=== PATIENT | male | born 1960 | race Caucasian/White ===

== ENCOUNTER 2018-04-08 11:12 | Observation (INO) ==
[2018-04-08] MEDS ORDERED: Morphine Inj 4 MG/ML Vial IV.PUSH PRN (21:06)
[2018-04-08] MEDS ORDERED: Famotidine 20 MG Tablet PO SCH (21:15)
[2018-04-08] MEDS ORDERED: Zolpidem Tartrate 5 MG Tablet PO PRN (21:17)
[2018-04-08 22:25] LABS: Troponin I 0.03 ng/mL (0.02-0.05)
--- NOTE | 2018-04-08 23:27 | P.HPIM ---
[facility] of Present Illness [facility]: No Primary Care Physician Chief Complaint: Chest pain History of Present Illness: Mr. He is a 57 y/o male who recently relocated here from [place], [place] with a history of atrial fibrillation status post ablation, hypertension , hyperlipidemia, implanted loop recorder, questionable history of CAD (denies cardiac stents or CABG), and pneumonia who presented to the ED in [place] for evaluation of chest pain. It was his third visit to the ER: 1st time he left without being seen, second time he left AMA, and this time he was transferred to [facility] for evaluation of his chest pain due to new EKG changes compared to earlier EKG. According to the patient's nurse, he requested that he be placed on a Fentanyl drip as soon as he arrived from the prior hospital. The patient is seen in the CDU. He is very sleepy and according to the nurse, his daughter dropped of his suitcases and medications and informed the staff she was moving to another state. The patient and the patient's daughter's boyfriend had some sort of verbal confrontation in his room and after they left, the patient began to express suicidal ideation with intent. The patient then took unknown medications from his home meds before the nurse could lock them up for safety. He has a prescription for Xanax 1 mg twice daily that was filled 4 days ago and there only about 8 pills left. At the time of my visit, he is very sleepy but will awaken to voice. After I woke the patient up, he asked for a drink of apple juice. He reports severe central chest pain on direct inquiry about chest pain but falls back asleep while talking to me. When I attempted to get more in depth about the symptoms he has been having and his suicidal ideations, he continued to fall asleep. He intermittently asks for something to drink and expresses disdain at his n.p.o. status. Case was discussed with Dr. Tolbert. She has personally seen the patient and initiated a Heaton Act due to suicidal statements. I have ordered a sitter and psychiatric evaluation. Most of the patient's history is obtained from the medical record as the patient is not cooperative with history and physical. - Diagnosis (1) Chest pain Review of Systems unobtainable due to mental status (patient is uncooperative) PMFSH - History History Provided By: Patient, Medical Record - Medical History Medical History: Medical History (Last Updated 04/09/18 @ 04:28 by ROYA Hendrickson) Cholecystectomy planned (Acute) Pneumonia (Acute) Atrial fibrillation (Acute) History of hyperlipidemia History of hypertension - Surgical History Surgical History: Surgical History (Last Updated 04/09/18 @ 04:28 by ROYA Hendrickson) History of loop recorder (Acute) History of appendectomy (Acute) Hx of cardiac cath (Acute) S/P ablation of atrial fibrillation (Acute) - Family History Family History: Family History (Last Updated 04/09/18 @ 04:27 by ROYA Hendrickson) Other Family history unobtainable - Tobacco History Second Hand Smoke Exposure: Yes Smoking Status: Heavy tobacco smoker Tobacco Type: Cigarettes - Alcohol History How Often Do You Have a Drink Containing Alcohol: Never - Substance Use History Substance History: No History of Abuse Medications and Allergies Active Medications: Active Medications Acetaminophen (Tylenol) 500 mg PO Q4H PRN PRN Reason: HEADACHE Hydrocodone Bitart/Acetaminophen ([place]ur 7.5/325) 1 tab PO Q4H PRN PRN Reason: PAIN SCALE 1 TO 5 Famotidine (Pepcid) 20 mg PO BID JOSH Morphine Sulfate (Morphine Inj) 2 mg IV.PUSH Q3H PRN PRN Reason: PAIN SCALE 6 TO 10 Nitroglycerin (Nitrostat Sl) 0.4 mg SL Q5M PRN PRN Reason: ANGINA Sodium Chloride (Ns Flush) 2 ml IV.FLUSH BID JOSH Sodium Chloride (Ns Flush) 2 ml IV.FLUSH PRN PRN PRN Reason: FLUSH AFTER USING IV ACCESS Zolpidem Tartrate (Ambien) 5 mg PO HS PRN PRN Reason: INSOMNIA Allergies Allergy/AdvReac Type Severity Reaction Status Date / Time ceftriaxone [From Rocephin] Allergy Rash Verified 04/08/18 11:19 lisinopril Allergy Cough Verified 04/08/18 11:19 Home Medications Medication Instructions Recorded Confirmed Type amiodarone 04/07/18 History gabapentin 04/07/18 History ibuprofen 04/07/18 History lovastatin 04/07/18 History metoprolol tartrate 04/07/18 History sertraline 04/07/18 History alprazolam 1 mg PO BID 04/09/18 04/09/18 History famotidine 20 mg PO BID 04/09/18 04/09/18 History fluticasone 1 spray INTRANASAL DAILY 04/09/18 04/09/18 History isosorbide mononitrate 30 mg PO DAILY 04/09/18 04/09/18 History losartan 100 mg PO DAILY 04/09/18 04/09/18 History pantoprazole 40 mg PO DAILY 04/09/18 04/09/18 History trazodone 300 mg PO DAILY PRN 04/09/18 04/09/18 History Exam Vital signs: Vital Signs 04/08/18 21:46 Temperature 98 F Pulse Rate 57 L Respiratory Rate 18 Blood Pressure 140/78 Pulse Oximetry 97 - Constitutional no acute distress, obese, disheveled, somnolent - Routine Respiratory Exam Present: CTA bilaterally, diminished air movement (at bases) - Routine Cardiovascular Exam Present: RRR, S1, S2. Absent: murmur, gallop, rubs - Routine Abdominal Exam Present: soft, normoactive bowel sounds. Absent: distended - Routine Extremities Exam Present: pulses intact. Absent: edema - Routine Skin Exam Present: dry, warm - Routine Neurological Exam Present: altered mental status (somnolent and noncooperative). Absent: facial asymmetry Results - Labs Labs: Cardiac Enzymes 04/08/18 Range/Units 21:45 Total Creatine Kinase 97 (39-308) U/L Troponin I 0.03 (0.02-0.05) ng/mL Caprini VTE Risk Assessment Caprini VTE Risk Assessment: Moderate/High Risk (score >= 2) Caprini Risk Assessment Model: Point Value = 1 Point Value = 2 Point Value = 3 Point Value = 5 Age 41-60 Minor surgery BMI > 25 kg/m2 Swollen legs Varicose veins or History of unexplained or recurrent spontaneous Oral contraceptives or hormone replacement Sepsis (< 1 month) Serious lung disease, including pneumonia (< 1 month) Abnormal pulmonary function Acute myocardial infarction Congestive heart failure (< 1 month) History of inflammatory bowel disease Medical patient at bed rest Age 61-74 Arthroscopic surgery Major open surgery (> 45 min) Laparoscopic surgery (> 45 min) Malignancy Confined to bed (> 72 hours) Immobilizing plaster cast Central venous access Age >= 75 History of VTE Family history of VTE Factor V Leiden Prothrombin [id number] Lupus anticoagulant Anticardiolipin antibodies Elevated serum homocysteine Heparin-induced thrombocytopenia Other congenital or acquired thrombophilia Stroke (< 1 month) Elective arthroplasty Hip, pelvis, or leg fracture Acute spinal cord injury (< 1 month) Prophylaxis Regimen: Total Risk Factor Score Risk Level Prophylaxis Regimen 0-1 Low Early ambulation 2 Moderate Order ONE of the following: *Sequential Compression Device (SCD) *Heparin 5000 units SQ BID 3-4 Higher Order ONE of the following medications: *Heparin 5000 units SQ TID *Enoxaparin/Lovenox 40 mg SQ daily (WT < 150 kg, CrCl > 30 mL/min) *Enoxaparin/Lovenox 30 mg SQ daily (WT < 150 kg, CrCl > 10-29 mL/min) *Enoxaparin/Lovenox 30 mg SQ BID (WT < 150 kg, CrCl > 30 mL/min) AND/OR *Sequential Compression Device (SCD) 5 or more Highest Order ONE of the following medications: *Heparin 5000 units SQ TID (Preferred with Epidurals) *Enoxaparin/Lovenox 40 mg SQ daily (WT < 150 kg, CrCl > 30 mL/min) *Enoxaparin/Lovenox 30 mg SQ daily (WT < 150 kg, CrCl > 10-29 mL/min) *Enoxaparin/Lovenox 30 mg SQ BID (WT < 150 kg, CrCl > 30 mL/min) AND *Sequential Compression Device (SCD) Assessment and Plan - Assessment (1) Chest pain Code(s): R07.9 - Chest pain, unspecified Status: Acute - Plan Mr. He is a 57 y/o male who recently relocated here from [place], [place] with a history of atrial fibrillation status post ablation, hypertension , hyperlipidemia, implanted loop recorder, questionable history of CAD (denies cardiac stents or CABG), and pneumonia who presented to the ED in [place] for evaluation of chest pain. It was his third visit to the ER: 1st time he left without being seen, second time he left AMA, and this time he was transferred to [facility] main campus for evaluation of his chest pain due to new EKG changes compared to earlier EKG. Chest pain - Serial EKGs and cardiac enzymes to r/o ACS -personally reviewed and cardiac enzymes have been within normal parameters (total of 4 including earlier ER visit); twelve-lead EKG shows new inferior lead T-wave inversion and t wave inversion in V3 - V6 now vs t wave suppression in V4 - 6 noted on earlier EKG - Continuous cardiac telemetry to monitor for cardiac arrhythmia - Nitroglycerin 0.4 mg sublingual as needed for chest pain; PRN Macarthur and morphine for further complaints of pain - consult cardiology given EKG changes - Toxicology screen positive for Benzodiazepines - Continue n.p.o. status - We will check lipid profile - Famotidine 20 mg p.o. twice daily Suicidal Ideation - Heaton Act initiated by Dr. Tolbert - Sitter at bedside - Consult placed to psychiatry service -assistance/recommendations appreciated Abnormal CTPA - No pulmonary embolism limited by incompletely opacified sub-segmental branches for definitive evaluation - 2 cm parenchymal cyst with adjacent small nodules inferiorly with the largest measuring up to 6 mm -infectious versus inflammatory etiology. Radiologist recommends follow-up CT examination in 2-3 months given the somewhat atypical appearance of the cyst and adjacent nodules - ordered therapeutic Lovenox dose pending cardiology evaluation - concern to not order another contrast study with the possibility of cardiac cath given EKG changes. - awaiting home medications to be reconciled DVT prophylaxis - ordered a therapeutic Lovenox dose pending cardiology evaluation Discussed Condition With: Dr. Tolbert, CDU nurse
[2018-04-09] MEDS ORDERED: Enoxaparin Inj 100 MG/ML Syringe SQ ONE (05:00)
--- NOTE | 2018-04-09 05:50 | P.PN ---
Subjective Interval history: f/u cp and SI. Denies cp and SI. Requesting neurontin, xanax and Eliquis 5 mg BID which are his home meds Physical Exam Vital signs: Vital Signs 04/08/18 21:46 04/09/18 00:00 04/09/18 03:27 Temperature 98 F 98.3 F Pulse Rate 57 L 64 52 L Respiratory Rate 18 24 18 Blood Pressure 140/78 123/73 127/81 Pulse Oximetry 97 93 L Intake & Output 04/08/18 04/08/18 04/09/18 06:59 18:59 06:59 Weight 92.986 kg Other: Weight On Admission 0 g Narrative: GENERAL: Well-developed and well-nourished in no distress SKIN: Warm and dry. HEAD: Atraumatic. Normocephalic. EYES: Pupils equal and round. No scleral icterus. No injection or drainage. ENT: No nasal bleeding or discharge. Mucous membranes pink and moist. NECK: Trachea midline. No JVD. CARDIOVASCULAR: Regular rate and rhythm. RESPIRATORY: No accessory muscle use. Clear to auscultation. Breath sounds equal bilaterally. GASTROINTESTINAL: Abdomen soft, non-tender, nondistended. MUSCULOSKELETAL: Extremities without clubbing, cyanosis, or edema. No obvious deformities. NEUROLOGICAL: Awake and alert. No obvious cranial nerve deficits. Motor grossly within normal limits. Five out of 5 muscle strength in the arms and legs. Normal speech. PSYCHIATRIC: Appropriate mood and affect; insight and judgment normal. Results - Labs Laboratory Results - last 24 hr 04/08/18 21:45 Magnesium 2.0 Total Creatine Kinase 97 Troponin I 0.03 - Procedures none Assessment and Plan - Plan Mr. He is a 57 y/o male who recently relocated here from [place], [place] with a history of atrial fibrillation status post ablation, hypertension , hyperlipidemia, implanted loop recorder, questionable history of CAD (denies cardiac stents or CABG), and pneumonia who presented to the ED in [place] for evaluation of chest pain. It was his third visit to the ER: 1st time he left without being seen, second time he left AMA, and this time he was transferred to [facility] main campus for evaluation of his chest pain due to new EKG changes compared to earlier EKG. Chest pain - Serial EKGs and cardiac enzymes to r/o ACS -personally reviewed and cardiac enzymes have been within normal parameters (total of 4 including earlier ER visit); twelve-lead EKG shows new inferior lead T-wave inversion and t wave inversion in V3 - V6 - Continuous cardiac telemetry to monitor for cardiac arrhythmia - Nitroglycerin 0.4 mg sublingual as needed for chest pain; PRN Lyons and morphine for further complaints of pain - consult cardiology given EKG changes, ct asa, nitrate, BB and lovenox - Toxicology screen positive for Benzodiazepines - Continue n.p.o. status - We will check lipid profile Suicidal Ideation - Heaton Act initiated by Dr. Tolbert - Sitter at bedside - Consult placed to psychiatry service -assistance/recommendations appreciated Abnormal CTPA - No pulmonary embolism limited by incompletely opacified sub-segmental branches for definitive evaluation - 2 cm parenchymal cyst with adjacent small nodules inferiorly with the largest measuring up to 6 mm -infectious versus inflammatory etiology. Radiologist recommends follow-up CT examination in 2-3 months given the somewhat atypical appearance of the cyst and adjacent nodules - received therapeutic Lovenox dose pending cardiology evaluation - concern to not order another contrast study with the possibility of cardiac cath given EKG changes. - awaiting home medications to be reconciled DVT prophylaxis - Switch to Heparin drip pending card lonnie
[2018-04-09 07:58] LABS: Chol/HDL Ratio 5.4 Ratio; HDL Cholesterol 33.1 mg/dL (40.0-60.0); Troponin I 0.03 ng/mL (0.02-0.05)
[2018-04-09] MEDS ORDERED: Aspirin 325 MG Tablet PO SCH (09:00)
[2018-04-09] MEDS: Sertraline 100 MG Tablet PO SCH (10:22)
[2018-04-09] MEDS: Isosorbide Mononitrate 30 MG ER 24HR Tablet (Imdur) PO SCH (10:22)
[2018-04-09] MEDS: Amiodarone 200 MG Tablet PO SCH (10:23)
[2018-04-09] MEDS: Metoprolol Tartrate 50 MG Tablet PO SCH ×2 (10:24→20:29)
--- NOTE | 2018-04-09 11:19 | MB ---
cc: Flo Gonzales MD DATE: 04/09/2018 REASON FOR CONSULTATION: Chest pain, abnormal EKG. HISTORY OF PRESENT ILLNESS: The patient is a poor historian. He is a 57-year-old white male, originally from [place], [place], where he has had most of his cardiac care, with a history of cardiac ablation possibly of atrial fibrillation, hypertension, and hyperlipidemia, who presented to the hospital, mainly with complaints of chest pain. The patient states for the past two years, he has had daily left-sided chest pain associated with pounding palpitations and shortness of breath occasionally diaphoresis. The chest discomforts generally last up to 10-15 minutes and have absolutely no relationship to exertion. He denies pleurisy, fevers, or paroxysmal nocturnal dyspnea. Chronically, he has intermittent mild dependent edema. He states he has lost consciousness in the past, but is unable to recall when his last episode of syncope was. The patient reports a history of 2 "heart caths" but cannot recall ever receiving a coronary stent. He has had an implantable loop recorder placed some time in the last few years. PAST MEDICAL HISTORY: As above. No other details currently available. PAST SURGICAL HISTORY: 1. Appendectomy. 2. Cholecystectomy. 3. Loop recorder placement. CARDIAC MEDICATIONS AT HOME: 1. Amiodarone 200 mg daily. 2. Metoprolol tartrate 50 mg b.i.d. 3. Isosorbide mononitrate 30 mg daily. 4. Losartan 100 mg daily. 5. Lovastatin, unknown dose. ALLERGIES: 1. CEFTRIAXONE 2. LISINOPRIL. FAMILY HISTORY: The patient reports both his parents passing away from myocardial infarction in their 50s. SOCIAL HISTORY: The patient smokes about 3/4 of a pack of cigarettes per day. He denies drug or alcohol abuse. REVIEW OF SYSTEMS: As in history of present illness, otherwise negative or noncontributory. He does complain of occasional chronic mild headaches. He denies dyspepsia, bright red blood per rectum or melena. PHYSICAL EXAMINATION: VITAL SIGNS: His blood pressure is 124/69 with a pulse of 56, respirations 20. GENERAL: He is a well-developed, well-nourished white male, in no acute distress. NECK: Jugular venous pressure is normal. Carotid pulses are 2+ bilaterally and without bruits. CHEST: Reveals clear lungs [place]. CARDIAC: He has a regular rhythm and rate without S3, S4, or murmur. ABDOMEN: He has a soft, nontender abdomen. Bowel sounds are present. There is no definite hepatosplenomegaly. EXTREMITIES: Reveals no clubbing, cyanosis or edema. DIAGNOSTIC STUDIES: EKG shows sinus rhythm. Inferior and anterolateral ST and T-wave abnormality, consider ischemia. IMAGING STUDIES: Chest x-ray shows no acute disease. LABORATORY DATA: Includes LDL 126, HDL 33, total cholesterol 179, triglycerides 101. Negative cardiac enzymes. WBC 8.1, hemoglobin 13.5, platelets 254. IMPRESSION: Overall atypical chronic chest pains in this 57-year-old white male with a history of hypertension, hyperlipidemia, and history of ablation, possibly of atrial fibrillation. Cardiac enzymes are negative for myocardial infarction. His EKG does show ischemic inferior and anterolateral ST and T-wave changes, the chronicity of which is not clear. The patient overall is a poor historian. From what I can gather, he may have had a nuclear stress test 2 months ago in [place], [place] that was negative for ischemia, but this is obviously difficult to confirm. RECOMMENDATIONS: Check a Lexiscan nuclear stress test; we will followup as needed for any ischemia demonstrated on nuclear stress testing. MD FANI Rodriguez/REBECCA , 10:55 AM , 11:04 AM CELSO
--- NOTE | 2018-04-09 12:00 | P.CONPSY ---
Provisional Diagnosis Admission Date: April 08, 2018 21:17 Masterson I.: Adjustment disorder with disturbance of conduct and emotions History of Present Illness Service: [facility] Primary Care Provider: No Primary Care Physician Chief Complaint: Chest pain History of Present Illness: The patient is a 57-year-old [place] man, domiciled in [facility] with daughter, he recently relocated from [place] to [facility], , unemployed, with psychiatric history of anxiety, he is on Zoloft 100 mg, Xanax 1 mg 3 times daily , no previous psychiatric hospitalizations, no suicide attempts, with a history medical history of atrial fibrillation status post ablation, hypertension, hyperlipidemia, implanted loop recorder, questionable history of CAD (denies cardiac stents or CABG), and pneumonia who presented to the ED in [place] for evaluation of chest pain. It was his third visit to the ER: 1st time he left without being seen, second time he left AMA, and this time he was transferred to [facility] [place] for evaluation of his chest pain due to new EKG changes compared to earlier EKG.According to the patient's nurse, he requested that he be placed on a Fentanyl drip as soon as he arrived from the prior hospital. The patient is seen in the CDU. He is very sleepy and according to the nurse, his daughter dropped of his suitcases and medications and informed the staff she was moving to another state. The patient and the patient's daughter's boyfriend had some sort of verbal confrontation in his room and after they left , the patient began to express suicidal ideation with intent. The patient then took unknown medications from his home meds before the nurse could lock them up for safety. He has a prescription for Xanax 1 mg twice daily that was filled 4 days ago and there only about 8 pills left. At the time of my visit, he is very sleepy but will awaken to voice. After I woke the patient up, he asked for a drink of apple juice. He reports severe central chest pain on direct inquiry about chest pain but falls back asleep while talking to me. When I attempted to get more in depth about the symptoms he has been having and his suicidal ideations, he continued to fall asleep. He intermittently asks for something to drink and expresses disdain at his n.p.o. status.Case was discussed with Dr. Tolbert. She has personally seen the patient and initiated a Heaton Act due to suicidal statements. I have ordered a sitter and psychiatric evaluation. Most of the patient's history is obtained from the medical record as the patient is not cooperative with history and physical. EMR was reviewed. The case was discussed with Dr. Sage. Psychiatric evaluation is performed in primary language of the patient which is Slovak. The patient reports to be quite upset because he says that he has never expressed any suicidal ideation. The patient reports that he loves his life and the only thing that he has been requesting is to have his medication for pain and anxiety. The patient reports that he has recently had an argument with his daughter and he is now homeless trying to go back to [place]. He denies suicidal and homicidal ideation, he denies and auditory hallucinations. The patient is quite focused in more medication for pain. [facility] - History History Provided By: Patient, Medical Record - Medical History Medical History: Medical History (Last Updated 04/09/18 @ 04:28 by ROYA Hendrickson) Cholecystectomy planned (Acute) Pneumonia (Acute) Atrial fibrillation (Acute) History of hyperlipidemia History of hypertension - Surgical History Surgical History: Surgical History (Last Updated 04/09/18 @ 04:28 by ROYA Hendrickson) History of loop recorder (Acute) History of appendectomy (Acute) Hx of cardiac cath (Acute) S/P ablation of atrial fibrillation (Acute) - Family History Family History: Family History (Last Updated 04/09/18 @ 04:27 by ROYA Hendrickson) Other Family history unobtainable - Tobacco History Second Hand Smoke Exposure: Yes Tobacco Use In Past 30 Days: Yes Smoking Status: Heavy tobacco smoker Tobacco Type: Cigarettes - Alcohol History How Often Do You Have a Drink Containing Alcohol: Never - Substance Use History Substance History: No History of Abuse - Travel History Recent Travel in the [place] Within the Last 8 Weeks: No Recent Travel Out of the Country Within the Last 8 Weeks: No Medications and Allergies Active Medications: Active Medications Acetaminophen (Tylenol) 500 mg PO Q4H PRN PRN Reason: HEADACHE Hydrocodone Bitart/Acetaminophen (Ironside 7.5/325) 1 tab PO Q4H PRN PRN Reason: PAIN SCALE 1 TO 5 Last Admin: 04/09/18 07:09 Dose: 1 tab Alprazolam (Xanax) 1 mg PO BID PRN PRN Reason: ANXIETY AND/OR AGITATION Amiodarone HCl (Cordarone) 200 mg PO DAILY [facility] Last Admin: 04/09/18 10:23 Dose: 200 mg Aspirin (Aspirin) 325 mg PO DAILY [facility] Last Admin: 04/09/18 10:22 Dose: 325 mg Fluticasone Propionate (Flonase Nasal [place]) 1 spray EACH NARE DAILY [facility] Last Admin: 04/09/18 10:24 Dose: Not Given Gabapentin (Neurontin) 400 mg PO TID [facility] Isosorbide Mononitrate (Imdur) 30 mg PO DAILY [facility] Last Admin: 04/09/18 10:22 Dose: 30 mg Losartan Potassium (Cozaar) 100 mg PO DAILY [facility] Last Admin: 04/09/18 10:22 Dose: 100 mg Metoprolol Tartrate (Lopressor) 50 mg PO BID [facility] Last Admin: 04/09/18 10:24 Dose: Not Given Morphine Sulfate (Morphine Inj) 2 mg IV.PUSH Q3H PRN PRN Reason: PAIN SCALE 6 TO 10 Nitroglycerin (Nitrostat Sl) 0.4 mg SL Q5M PRN PRN Reason: ANGINA Pantoprazole Sodium (Protonix) 40 mg PO DAILY [facility] Last Admin: 04/09/18 10:22 Dose: 40 mg Sertraline HCl (Zoloft) 100 mg PO DAILY [facility] Last Admin: 04/09/18 10:22 Dose: 100 mg Sodium Chloride (Ns Flush) 2 ml IV.FLUSH BID [facility] Last Admin: 04/09/18 10:23 Dose: 2 ml Sodium Chloride (Ns Flush) 2 ml IV.FLUSH PRN PRN PRN Reason: FLUSH AFTER USING IV ACCESS Trazodone HCl (Desyrel) 300 mg PO HS PRN PRN Reason: INSOMNIA Zolpidem Tartrate (Ambien) 5 mg PO HS PRN PRN Reason: INSOMNIA Allergies Allergy/AdvReac Type Severity Reaction Status Date / Time ceftriaxone [From Rocephin] Allergy Rash Verified 04/08/18 11:19 lisinopril Allergy Cough Verified 04/08/18 11:19 Home Medications Medication Instructions Recorded Confirmed Type amiodarone 200 mg PO DAILY 04/07/18 04/09/18 History gabapentin 04/07/18 History ibuprofen 800 mg PO TID 04/07/18 04/09/18 History lovastatin 04/07/18 History metoprolol tartrate 50 mg PO BID 04/07/18 04/09/18 History sertraline 100 mg PO DAILY 04/07/18 04/09/18 History alprazolam 1 mg PO BID 04/09/18 04/09/18 History famotidine 20 mg PO BID 04/09/18 04/09/18 History fluticasone 1 spray INTRANASAL DAILY 04/09/18 04/09/18 History isosorbide mononitrate 30 mg PO DAILY 04/09/18 04/09/18 History losartan 100 mg PO DAILY 04/09/18 04/09/18 History pantoprazole 40 mg PO DAILY 04/09/18 04/09/18 History trazodone 300 mg PO DAILY PRN 04/09/18 04/09/18 History Exam Vital signs: Vital Signs 04/08/18 21:46 04/09/18 00:00 04/09/18 03:27 Temperature 98 F 98.3 F Pulse Rate 57 L 64 52 L Respiratory Rate 18 24 18 Blood Pressure 140/78 123/73 127/81 Pulse Oximetry 97 93 L 04/09/18 08:54 Temperature 98.3 F Pulse Rate 56 L Respiratory Rate 20 Blood Pressure 124/69 Pulse Oximetry 96 Intake & Output 04/08/18 04/09/18 04/09/18 18:59 06:59 18:59 Weight 92.986 kg Other: Weight On Admission 0 g Mental Status Examination Appearance: Appropriate Consciousness: Alert Orientation: x4 Motor Activity: Normal gait Speech: Unremarkable Language: Adequate Fund of Knowledge: Adequate Memory: Unremarkable Mood: Irritable Affect: Irritable Thought Process & Associations: Intact Thought Content: Appropriate Hallucination Type: None Delusion Type: None Suicidal Ideation: No Suicidal Plan: No Suicidal Intention: No Homicidal Ideation: No Homicidal Plan: No Homicidal Intention: No Insight: Adequate Judgment: Adequate Assessment and Plan - Assessment (1) Adjustment disorder with disturbance of emotion Code(s): F43.29 - Adjustment disorder with other symptoms Status: Acute (2) Adjustment disorder with mixed disturbance of emotions and conduct Code(s): F43.25 - Adjustment disorder with mixed disturbance of emotions and conduct Status: Acute - Plan Plan: Estimated LOS: [] days The patient does not present any neuropsychiatric symptoms or require an immediate psychiatric intervention. Apparently recent suicidal behavior was manipulative in order to get more medication for pain and anxiety. He denies suicidal and homicidal ideation at the moment, he denies visual and auditory hallucinations. The patient is future oriented. Quite focused on pain medication. I will order Xanax 0.5 mg 3 times daily for anxiety. He does not meet criteria for involuntary psychiatric admission. I will lift the Heaton act Justification for Continued Inpatient Stay: No admission is indicated
--- NOTE | 2018-04-09 14:01 | ECG ---
Date Performed: 04/08/2018 Time Performed: 23:59:53 PTAGE: 57 years EKG: Sinus rhythm ST DEVIATION AND MODERATE T-WAVE ABNORMALITY, CONSIDER ANTEROLATERAL ISCHEMIA ABNORMAL ECG NO PREVIOUS TRACING DOCTOR: Bubba Hui Interpretating Date/Time 04/09/2018 13:59:35
[2018-04-09] MEDS ORDERED: Regadenoson Inj 0.4 MG/5 ML Syringe IV.PUSH ONE (15:58)
[2018-04-09] MEDS: Gabapentin 400 MG Capsule PO SCH ×2 (17:12→17:18)
--- NOTE | 2018-04-09 17:27 | NM ---
EXAM DATE: 04/09/2018 5:17 PM EDT AGE/SEX: 57 years / Male INDICATIONS:Angina. . Chest pain. CLINICAL DATA: This is the patient's initial encounter. Patient reports that signs and symptoms have been present for 1 day and indicates a pain score of 0/10. MEDICAL/SURGICAL HISTORY: Hypertension. Smoker. A-Fib. Angioplasty. Loop recorder. COMPARISON: No prior exams available for comparison. DOSE: 8.1 mCi Tc 99m Myoview at rest 27.3 mCi [id number] at stress 0.4 mg Lexiscan STRESS SYMPTOMS: Dyspnea. EJECTION FRACTION: 63 % TECHNIQUE: The patient underwent pharmacologic stress with infusion of prescribed dose. Continuous ECG tracing was monitored during stress. Gated SPECT imaging was performed after stress and conventi onal SPECT imaging was performed at rest. The examination was performed on a SPECT/CT scanner, both attenuation and non-corrected datasets were reviewed. FINDINGS: Distribution: The maximum perfused segment at stress is in the anterolateral wall. Perfusion Study: The pattern of perfusion at stress is within normal limits. Gated Study: There are intact wall motion and wall thickening without hypokinetic or dyskinetic segm ents. The ejection fraction is calculated at 63%. RISK CATEGORY: Low (<1% Annual Motality Rate) CONCLUSION: 1. No significant ischemia. Electronically signed by: Alejandro Francis MD 04/09/2018 5:25 PM EDT
[2018-04-09] MEDS ORDERED: traZODone 100 MG Tablet PO PRN (21:00)
[2018-04-10] MEDS: Acetaminophen 500 MG Tablet PO PRN ×2 (01:38→11:20)
[2018-04-10] MEDS: Isosorbide Mononitrate 30 MG ER 24HR Tablet (Imdur) PO SCH (08:26)
[2018-04-10] MEDS: Gabapentin 400 MG Capsule PO SCH (08:26)
[2018-04-10] MEDS: Sertraline 100 MG Tablet PO SCH (08:27)
[2018-04-10] MEDS: Amiodarone 200 MG Tablet PO SCH (08:27)
[2018-04-10] MEDS: Metoprolol Tartrate 50 MG Tablet PO SCH (08:27)
--- NOTE | 2018-04-10 11:33 | P.DS ---
Date of admission: 04/08/18 21:17 Primary care physician: No Primary Care Physician Brief History from admission: Mr. He is a 57 y/o male who recently relocated here from [place], [place] with a history of atrial fibrillation status post ablation, hypertension , hyperlipidemia, implanted loop recorder, questionable history of CAD (denies cardiac stents or CABG), and pneumonia who presented to the ED in [place] for evaluation of chest pain. It was his third visit to the ER: 1st time he left without being seen, second time he left AMA, and this time he was transferred to [facility] for evaluation of his chest pain due to new EKG changes compared to earlier EKG. According to the patient's nurse, he requested that he be placed on a Fentanyl drip as soon as he arrived from the prior hospital. The patient is seen in the CDU. He is very sleepy and according to the nurse, his daughter dropped of his suitcases and medications and informed the staff she was moving to another state. The patient and the patient's daughter's boyfriend had some sort of verbal confrontation in his room and after they left, the patient began to express suicidal ideation with intent. The patient then took unknown medications from his home meds before the nurse could lock them up for safety. He has a prescription for Xanax 1 mg twice daily that was filled 4 days ago and there only about 8 pills left. At the time of my visit, he is very sleepy but will awaken to voice. After I woke the patient up, he asked for a drink of apple juice. He reports severe central chest pain on direct inquiry about chest pain but falls back asleep while talking to me. When I attempted to get more in depth about the symptoms he has been having and his suicidal ideations, he continued to fall asleep. He intermittently asks for something to drink and expresses disdain at his n.p.o. status. Case was discussed with Dr. Tolbert. She has personally seen the patient and initiated a Heaton Act due to suicidal statements. I have ordered a sitter and psychiatric evaluation. Most of the patient's history is obtained from the medical record as the patient is not cooperative with history and physical. DS: Medications - Discharge Medications Prescriptions: apixaban [Eliquis] 5 mg PO BID #60 tab DS: Summary Hospital Course: Mr. He is a 57 y/o male who recently relocated here from [place], [place] with a history of atrial fibrillation status post ablation, hypertension , hyperlipidemia, implanted loop recorder, questionable history of CAD (denies cardiac stents or CABG), and pneumonia who presented to the ED in [place] for evaluation of chest pain. It was his third visit to the ER: 1st time he left without being seen, second time he left AMA, and this time he was transferred to [facility] main campus for evaluation of his chest pain due to new EKG changes compared to earlier EKG. Chest pain. Ruled out for NH. Neg [place] scan Suicidal Ideation. Currently denies s/p Psych eval, pt is drug seeking lifted BA and dc sitter Abnormal CTPA - No pulmonary embolism limited by incompletely opacified sub-segmental branches for definitive evaluation - 2 cm parenchymal cyst with adjacent small nodules inferiorly with the largest measuring up to 6 mm -infectious versus inflammatory etiology. Radiologist recommends follow-up CT examination in 2-3 months given the somewhat atypical appearance of the cyst and adjacent nodules Afib , HLD. Ct home meds requesting refill of eliquis. Noncomplaint with statin pt counselled DVT prophylaxis. Eliquis - Time Spent with Patient Total time spent providing and/or coordinating discharge services: Greater than 30 minutes - Quality: VTE Deep Vein Thrombosis/Pulmonary Embolism Present on Admission: No Exam Vital signs: Vital Signs 04/09/18 12:00 04/09/18 16:00 04/09/18 19:59 Temperature 98.5 F 98.3 F 98.2 F Pulse Rate 52 L 67 68 Respiratory Rate 18 18 18 Blood Pressure 103/62 112/52 L 105/59 L Pulse Oximetry 96 100 95 04/09/18 20:00 04/09/18 23:32 04/10/18 03:38 Temperature 98.1 F 98.4 F Pulse Rate 66 66 60 Respiratory Rate 18 18 Blood Pressure 105/60 131/73 Pulse Oximetry 95 96 04/10/18 08:00 Temperature 98.0 F Pulse Rate 63 Respiratory Rate 18 Blood Pressure 142/85 H Pulse Oximetry 98 Intake & Output 04/09/18 04/10/18 04/10/18 18:59 06:59 18:59 Other: Date of Last Bowel Movement 04/10/18 Narrative: GENERAL: Well-developed and well-nourished in no distress SKIN: Warm and dry. CARDIOVASCULAR: Regular rate and rhythm. RESPIRATORY: No accessory muscle use. Clear to auscultation. Breath sounds equal bilaterally. GASTROINTESTINAL: Abdomen soft, non-tender, nondistended. MUSCULOSKELETAL: Extremities without clubbing, cyanosis, or edema. No obvious deformities. NEUROLOGICAL: Awake and alert. No obvious cranial nerve deficits. Motor grossly within normal limits. Five out of 5 muscle strength in the arms and legs. Normal speech. PSYCHIATRIC: Appropriate mood and affect; insight and judgment normal. Results Procedures completed during hospitalization: none - Impressions ITS Impressions Myocardial Perfusion Scan Nuc Med 04/09/18 00:00 CONCLUSION: 1. No significant ischemia. Discharge Plan - Discharge Disposition Patient Disposition: Discharge Home - Discharge Condition Condition: Stable - Discharge Order Discharge Orders: Discharge Order (Routine); Ordered 04/10/18 Ordered By: Sadi Sage Cardiology Clear for Discharge (Routine); Ordered 04/09/18 Ordered By: Flo Gonzales - Physicians Team Primary Care Provider: Primary Care Olga Childress Attending Provider: Sadi Sage Other Providers: Jamie Rooney MD ; Flo Gonzales MD ; Eva Velasquez - Rxs /Orders / Referrals /Forms Prescriptions: Continue alprazolam 1 mg Tablet 1 mg PO BID amiodarone 200 mg Tablet 200 mg PO DAILY apixaban [Eliquis] 5 mg Tablet 5 mg PO BID Qty: 60 fluticasone 50 mcg/actuation [place],Suspension 1 spray INTRANASAL DAILY gabapentin isosorbide mononitrate 30 mg Tablet Extended Release 24 Hr 30 mg PO DAILY losartan 100 mg Tablet 100 mg PO DAILY lovastatin metoprolol tartrate 50 mg Tablet 50 mg PO BID pantoprazole 40 mg Tablet,Delayed Release (Dr/Ec) 40 mg PO DAILY sertraline 100 mg Tablet 100 mg PO DAILY trazodone 300 mg Tablet 300 mg PO DAILY PRN (Reason: Insomnia) Discontinued famotidine 20 mg Tablet 20 mg PO BID ibuprofen 800 mg Tablet 800 mg PO TID Referrals: Primary Care Olga Childress [Primary Care Provider] - See Instructions (1wk) - Discharge Instructions Patient Printed Instructions: A-fib (Atrial Fibrillation) (DC), Chest Pain (DC) - Post Discharge Care Plan Care Plan Goals: Your Health Problems: Goals to Promote Your Health: * To prevent worsening of your condition * To maintain your health at the optimal level Directions to Meet Your Goals: * Take your medications as prescribed * Follow your dietary instruction * Follow activity as directed * Keep your appointments as scheduled * Take your immunizations and boosters as scheduled * If your symptoms worsen call your PCP * If no PCP go to Urgent Care or Emergency Room Smoking is dangerous to your health. Avoid second hand smoke. You may reach the 24-hour crisis hotline for domestic abuse at .
== END 2018-04-10 13:03 | disposition home or self-care (01) ==
LOC: NEDDLT 11:12 → NEPFCDU 11:12
PROVIDERS: ADMIT Internal Medicine; ATTEND Internal Medicine